=== PATIENT | female | born 1965 | race American Indian/Alaskan Native ===

== ENCOUNTER 2018-04-17 06:32 | Day surgery (SDC) | payer BC ==
[2018-04-16 13:43] VITALS: BMI 36.2
[2018-04-17] MEDS ORDERED: Lactated Ringer's 1,000 ML IV ONE (08:40)
[2018-04-17] MEDS ORDERED: Propofol 10 mg/ml Inj (20 ML) ONE ×2 (08:45→08:59)
[2018-04-17] MEDS ORDERED: Midazolam 2 MG/2 ML VIAL ONE (08:45)
--- NOTE | 2018-04-17 09:12 | CP.SDSHP ---
Same Day Surgery H & P - History Proposed Procedure: endoscopy, colonoscopy Pre-Op Diagnosis: epig pain, colon screen - Previous Medical/Surgical History Cardiac: Hypertension Pulmonary: Cough/URI - Allergies Allergies: Allergies morphine Allergy (Verified 04/17/18 06:50) ITCHING - Physical Exam Vital Signs: Vital Signs 04/17/18 04/17/18 06:54 07:09 Temperature 98.2 F Pulse Rate 70 70 Respiratory 19 Rate Blood Pressure 142/88 O2 Sat by Pulse 99 Oximetry Mental Status: Alert & Oriented x3 Neuro: WNL Heart: WNL Lungs: WNL GI: WNL - {Optional Preform as Required} Abdomen: WNL - Impression Impression: colon screen, abdom pain Pt. Evaluated Today:Candidate for Anesthesia & Procedure: Yes - Date & Time Date: 04/17/18 Time: 09:30 Short Stay Discharge - Short Stay Discharge Admitting Diagnosis/Reason for Visit: ABDOMINAL PAIN / SCREENING Disposition: HOME/ ROUTINE
[2018-04-17 09:33] VITALS: TEMP 97.3; O2SAT 100
[2018-04-17 13:08] VITALS: BP 127/78; PULSE 60; RESP 13
== END 2018-04-17 12:50 | disposition left against medical advice (07) ==
LOC: C.ENDO 06:32
PROVIDERS: ATTEND Internal Medicine Gastroenterology
DX: D12.3 Benign neoplasm of transverse colon (principal); R10.84 Generalized abdominal pain; D12.5 Benign neoplasm of sigmoid colon; I10 Essential (primary) hypertension; R05 Cough; Z53.09 Procedure and treatment not carried out because of other contraindication; K64.8 Other hemorrhoids; K57.90 Diverticulosis of intestine, part unspecified, without perforation or abscess without bleeding; K62.1 Rectal polyp
CPT/HCPCS: 43235; 45385; 88305; J2250; J2704; J7120